=== PATIENT | female | born 1950 | race Caucasian/White ===

== ENCOUNTER 2019-01-06 09:49 | Outpatient (CLI) | payer OTHER ==
[2019-01-06 11:18] LABS: CHOLESTEROL 237 mg/dL (<200); HDL CHOLESTEROL 36 mg/dL (>55); LDL CHOLESTEROL 155 mg/dL (<100); TRIGLYCERIDES 182 mg/dL (30-150)
== END 2019-01-06 20:47 | disposition home or self-care (01) ==
LOC: SLB 09:49
DX: Z00.00 Encounter for general adult medical examination without abnormal findings (principal)
CPT/HCPCS: 36415; 80061; 83036

== ENCOUNTER 2019-01-07 13:42 | Outpatient (CLI) | payer OTHER | END 2019-01-07 21:09 | disposition home or self-care (01) | LOC: SLB 13:42 | PROVIDERS: ATTEND Family Medicine | DX: Z00.00 Encounter for general adult medical examination without abnormal findings (principal) | CPT/HCPCS: 36415 ==